=== PATIENT | female | born 1945 | race Caucasian/White ===

== ENCOUNTER 2017-09-20 13:15 | Emergency (ER) | payer MEDICARE ==
--- NOTE | 2017-09-20 13:23 | ER Document Report ---
ED General - General Stated Complaint: GENERAL WEAKNESS Time Seen by Provider: 09/20/17 13:21 Notes: 72 female presents with altered mental status. She has had a slow decline that the family was talking up to anxiety. They called today because she was not acting like herself. Per EMS vitals were normal except for possible hypothermia and there is no other information available. - Related Data Allergies/Adverse Reactions: No Known Allergies Allergy (Verified 09/20/17 14:27) Past Medical History - General Information source: Emergency Med Personnel Cannot obtain history due to: Dementia - Social History Smoking Status: Never Smoker Family History: None Review of Systems - Review of Systems Notes: REVIEW OF SYSTEMS PHYSICAL EXAMINATION General: No acute distress, well-nourished Head: Atraumatic, normocephalic ENT: Mouth normal, oropharynx moist, no exudates or tonsillar enlargement Eyes: Conjunctiva normal, pupils equal, lids normal Neck: No JVD, supple, no guarding CVS: Normal rate, regular rhythm, no murmurs Resp: No resp distress, equal and normal breath sounds bilaterally GI: Nondistended, soft, no tenderness to palpation, no rebound or guarding Ext: No deformities, no edema, normal range of motion in upper and lower ext Back: No CVA or midline TTP Skin: No rash, warm Lymphatic: No lymphadeopathy noted Neuro: Awake, alert. Face symmetric. GCS 15. Likely cognitive impairment. Trouble answering some questions. -: Yes ROS unobtainable due to patient's medical condition Course - Re-evaluation Re-evalutation: 09/20/17 13:23 Progressive cognitive decline in a 72-year-old female likely reflects dementia. Doubt delirium. She may be slightly hypothermic we will repeat her rectal temperature and if it is decreased we will get a sepsis workup. We will also do head CT 09/20/17 14:09 Spoke with patient's granddaughters. She has been having cognitive decline for months now has had multiple tests and scans, they state that "there is not enough blood flow to her brain" which I interpret to mean that she has vascular dementia or small vessel ischemic disease. She has help at home and primary care and I do not think this is a new problem. They do state that she is gotten worse in terms of her function in the last 2 days. She has been on Lexapro now for only about 2 weeks and they think it is due to that. I explained to them that patient to be fragile in terms of her cognition with new medications but that so far today we do not have a medical cause of her symptoms. Her CT does show atrophy which is quite pronounced. There is no stroke or bleed. No signs of infection. Pending her urine if it is normal I will discharge her home I will attempt to call her primary care so that they can close the loop with more support at home for the diagnostics and possible eventual placement if necessary I do not think this needs to happen today. I have discussed with the patient's family there likely diagnosis, aftercare plan , follow-up plans and my usual and customary return precautions. They verbalized understanding of this. 09/20/17 14:49 UA negative. Spoke with patient's primary care who states that she is aware of this cognitive decline and asked the patient to stop taking her Lexapro. I repeated these instructions to the family. They have a plan, good follow-up and are pending referral to neurology. - Laboratory Result Diagrams: 09/20/17 13:32 09/20/17 13:32 Laboratory results interpreted by me: 09/20/17 09/20/17 09/20/17 13:32 13:32 14:10 Seg Neutrophils % 81.1 H Lymphocytes % 11.2 L BUN 22 H Est GFR (Non-Af Amer) 52 L Glucose 197 H Calcium 10.4 H Urine Protein 30 H Urine Ketones 20 H Discharge - Discharge Clinical Impression: Dementia Qualifiers: Dementia type: unspecified type Dementia behavioral disturbance: without behavioral disturbance Qualified Code(s): F03.90 - Unspecified dementia without behavioral disturbance Condition: Good Disposition: HOME, SELF-CARE Instructions: Dementia (OM) Additional Instructions: We did testing to rule out infection or metabolic problems as a cause of the change in mental status. Labs were normal. CAT scan showed some brain atrophy or shrinkage, which may be due to dementia. Please take the patient to her primary care doctor for further behavioral and cognitive evaluation.
[2017-09-20 13:42] LABS: ABSOLUTE BASOPHILS # (AUTO) 0.1 10^3/uL (0.0-0.2); ABSOLUTE EOSINOPHILS # (AUTO) 0.1 10^3/uL (0.0-0.6); ABSOLUTE LYMPHOCYTES (AUTO) 1.1 10^3/uL (0.5-4.7); ABSOLUTE MONOCYTES (AUTO) 0.6 10^3/uL (0.1-1.4); ABSOLUTE NEUT (AUTO) 8.1 10^3/uL (1.7-8.2); BASOPHILS % (AUTO) 0.5 % (0-2); EOSINOPHILS % (AUTO) 0.8 % (0-6); HEMATOCRIT 36.4 % (36.0-47.0); HEMOGLOBIN 12.2 g/dL (12.0-15.5); LYMPHOCYTES % (AUTO) 11.2 % (13-45); MEAN CORPUSCULAR HEMOGLOBIN 29.8 pg (27.0-33.4); MEAN CORPUSCULAR HGB CONC 33.5 g/dL (32.0-36.0); MEAN CORPUSCULAR VOLUME 89 fl (80-97); MONOCYTES % (AUTO) 6.4 % (3-13); PLATELET COUNT 292 10^3/uL (150-450); RED BLOOD COUNT 4.09 10^6/uL (3.72-5.28); RED CELL DISTRIBUTION WIDTH 13.5 % (11.5-14.0); SEGMENTED NEUTROPHILS % (AUTO) 81.1 % (42-78); TOTAL CELLS COUNTED % (AUTO) 100 %
[2017-09-20 14:01] LABS: ANION GAP 9 (5-19); BLOOD UREA NITROGEN 22 mg/dL (7-20); CALCIUM 10.4 mg/dL (8.4-10.2); CARBON DIOXIDE 29 mmol/L (22-30); CHLORIDE 102 mmol/L (98-107); GLUCOSE 197 mg/dL (75-110); POTASSIUM 4.4 mmol/L (3.6-5.0); SODIUM 140.3 mmol/L (137-145)
--- NOTE | 2017-09-20 14:05 | RADIOLOGY REPORT (SQ) ---
EXAM DESCRIPTION: CT HEAD WITHOUT COMPLETED DATE/TIME: 09/20/2017 1:54 pm REASON FOR STUDY: CONFUSION COMPARISON: None. TECHNIQUE: Axial images acquired through the brain without intravenous contrast. Images reviewed wi th bone, brain and subdural windows. Images stored on PACS. All CT scanners at this facility use dose modulation, iterative reconstruction, and/or weight based d osing when appropriate to reduce radiation dose to as low as reasonably achievable (ALARA). [facility]: Dose Right [facility]: CareDose [facility]: Dose Right [facility]: Teradose 4D [facility]: Smart IMScouting RADIATION DOSE: CT Rad equipment meets quality standard of care and radiation dose reduction techniq ues were employed. CTDIvol: 67.0 mGy. DLP: 1316 mGy-cm. mGy. LIMITATIONS: None. FINDINGS: VENTRICLES: There is some prominence of the ventricular system out of proportion to the co rtical sulci such that I cannot exclude a component of normal pressure hydrocephalus. CEREBRUM: No masses. No hemorrhage. No midline shift. Areas of low density in the white matter mos t likely due to chronic micro-vascular ischemic change. No evidence for acute infarction. CEREBELLUM: No masses. No hemorrhage. No alteration of density. No evidence for acute infarction. EXTRAAXIAL SPACES: Mild age-related involutional change. No fluid collections. No masses. ORBITS AND GLOBE: No intra- or extraconal masses. Normal contour of globe without masses. CALVARIUM: No fracture. PARANASAL SINUSES: No fluid or mucosal thickening. SOFT TISSUES: No mass or hematoma. OTHER: No other significant finding. IMPRESSION: MILD CHRONIC CHANGES OF ATROPHY AND MICROVASCULAR ISCHEMIA. There is some prominence of the ventricular system out of proportion to the cortical sulci such that I cannot exclude a componen t of normal-pressure hydrocephalus. NO ACUTE PROCESS. EVIDENCE OF ACUTE STROKE: NO. TECHNICAL DOCUMENTATION: JOB ID: [id number] Quality ID # [id number]: Final reports with documentation of one or more dose reduction techniques (e.g., Au tomated exposure control, adjustment of the mA and/or kV according to patient size, use of iterative reconstruction technique) 2010 [employer]- All Rights Reserved
[2017-09-20 14:44] LABS: APPEARANCE,URINE CLEAR; BILIRUBIN,URINE NEGATIVE (NEGATIVE); COLOR,URINE YELLOW; GLUCOSE, URINE NEGATIVE (NEGATIVE); KETONES,URINE 20 mg/dL (NEGATIVE); LEUKOCYTE ESTERASE,URINE NEGATIVE (NEGATIVE); NITRITE,URINE NEGATIVE (NEGATIVE); PROTEIN,URINE 30 mg/dL (NEGATIVE); URINE SPECIFIC GRAVITY 1.011; UROBILINOGEN,URINE NEGATIVE mg/dL (<2.0)
[2017-09-20 15:05] VITALS: BP 136/80
--- NOTE | 2017-09-20 22:09 | EKG REPORT ---
SEVERITY:- OTHERWISE NORMAL ECG - SINUS RHYTHM VENTRICULAR PREMATURE COMPLEX : Confirmed by: Katalina Jo 20-Sep-2017 22:08:23
== END 2017-09-20 15:14 | disposition home or self-care (01) ==
LOC: ER 13:15
DX: F03.90 Unspecified dementia, unspecified severity, without behavioral disturbance, psychotic disturbance, mood disturbance, and anxiety (principal); R53.1 Weakness; R41.82 Altered mental status, unspecified
CPT/HCPCS: 36415; 51701; 70450; 80048; 81001; 85025; 93005; 93010; 99285

== ENCOUNTER 2017-09-21 18:44 | Inpatient (IN) | payer MEDICARE ==
--- NOTE | 2017-09-21 20:09 | ER Document Report ---
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 Son at bedside reports this to me. Patient came by EMS. Symptoms have resolved. Symptoms started less than 2 hours ago and lasted less than an hour. Family also reports that over the past several days patient has had a progressive mental decline and now she is incontinent, frequently confused, and mostly staying in bed. No fever, patient is still eating and drinking. TRAVEL OUTSIDE OF THE [place] IN LAST 30 DAYS: No - Related Data Allergies/Adverse Reactions: No Known Allergies Allergy (Verified 09/21/17 19:04) Past Medical History - Social History Smoking Status: Unknown if Ever Smoked Family History: None Patient has suicidal ideation: No Patient has homicidal ideation: No - Past Medical History Cardiac Medical History: Reports: Hx Hypertension Endocrine Medical History: Reports: Hx Diabetes Mellitus Type 2 Renal/ Medical History: Denies: Hx Peritoneal Dialysis Review of Systems - Review of Systems Constitutional: No symptoms reported EENT: No symptoms reported Cardiovascular: No symptoms reported Respiratory: No symptoms reported Gastrointestinal: No symptoms reported Genitourinary: No symptoms reported Female Genitourinary: No symptoms reported Musculoskeletal: No symptoms reported Skin: No symptoms reported Hematologic/Lymphatic: No symptoms reported Neurological/Psychological: See HPI Physical Exam - Vital signs Vitals: Temp Pulse Resp BP Pulse Ox 98.2 F 82 16 113/88 H 96 09/21/17 18:45 09/21/17 18:45 09/21/17 18:45 09/21/17 18:45 09/21/17 18:45 Interpretation: Normal - General General appearance: Appears well, Alert In distress: None - HEENT Head: Normocephalic, Atraumatic Eyes: Normal Conjunctiva: Normal Extraocular movements intact: Yes Eyelashes: Normal Pupils: PERRL Mouth/Lips: Normal Mucous membranes: Normal Pharynx: Normal Neck: Normal - Respiratory Respiratory status: No respiratory distress Chest status: Nontender Breath sounds: Normal Chest palpation: Normal - Cardiovascular Rhythm: Regular. No: Tachycardia Heart sounds: Normal auscultation, S1 appreciated, S2 appreciated Murmur: No - Abdominal Inspection: Normal Distension: No distension Bowel sounds: Normal Tenderness: Nontender. No: Tender, Guarding - Back Back: Normal, Nontender. No: Tender - Extremities General upper extremity: Normal inspection, Nontender, Normal strength, Normal temperature General lower extremity: Normal inspection, Nontender, Normal strength, Normal temperature. No: Edema - Neurological Neuro grossly intact: Yes Cognition: Confused - Patient able to follow directions and answer some questions appropriately but is confused about time, place, events Orientation: Disoriented to place, Disoriented to time, Disoriented to events. No: Disoriented to person [place] Coma Scale Eye Opening: Spontaneous Aurelia Coma Scale Verbal: Confused Aurelia Coma Scale Motor: Obeys Commands [place] Coma Scale Total: 14 Speech: Normal. No: Dysarthria, Expressive aphasia, Receptive aphasia Cranial nerves: Normal. 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 Only difference today is that in addition to patient's mental decline she also has symptoms reported concerning for TIA. 09/21/17 Patient with no neurological deficits on my exam. CBC, chemistry, cardiac enzymes, urinalysis, chest x-ray, EKG all generally unremarkable. Discussed with family. Will discuss with hospitalist for admission for TIA risk stratification and because of worsening mental decline. Discussed with Dr. Chan, internal medicine, patient will be admitted to telemetry observation. - Vital Signs Vital signs: Temp Pulse Resp BP Pulse Ox 98.4 F 68 16 131/88 H 95 09/21/17 23:00 09/22/17 00:00 09/22/17 02:01 09/22/17 02:01 09/22/17 02:01 - Laboratory Result Diagrams: 09/21/17 19:00 09/21/17 19:00 Laboratory results interpreted by me: 09/21/17 09/21/17 19:00 21:20 BUN 33 H Est GFR (Non-Af Amer) 49 L Glucose 189 H Urine Protein 30 H Ur Leukocyte Esterase SMALL H Discharge - Discharge Clinical Impression: TIA (transient ischemic attack) Qualifiers: Transient cerebral ischemia type: unspecified Qualified Code(s): G45.9 - Transient cerebral ischemic attack, unspecified Dementia Qualifiers: Dementia type: unspecified type Dementia behavioral disturbance: with behavioral disturbance Qualified Code(s): F03.91 - Unspecified dementia with behavioral disturbance Condition: Stable Disposition: ADMITTED OBSERVATION Admitting Provider: Hospitalist Unit Admitted: Telemetry
[2017-09-21 20:33] LABS: ABSOLUTE BASOPHILS # (AUTO) 0.1 10^3/uL (0.0-0.2); ABSOLUTE EOSINOPHILS # (AUTO) 0.2 10^3/uL (0.0-0.6); ABSOLUTE LYMPHOCYTES (AUTO) 1.7 10^3/uL (0.5-4.7); ABSOLUTE MONOCYTES (AUTO) 0.6 10^3/uL (0.1-1.4); BASOPHILS % (AUTO) 0.7 % (0-2); EOSINOPHILS % (AUTO) 1.8 % (0-6); HEMATOCRIT 36.1 % (36.0-47.0); LYMPHOCYTES % (AUTO) 20.5 % (13-45); MEAN CORPUSCULAR HEMOGLOBIN 29.9 pg (27.0-33.4); MEAN CORPUSCULAR HGB CONC 33.3 g/dL (32.0-36.0); MEAN CORPUSCULAR VOLUME 90 fl (80-97); MONOCYTES % (AUTO) 7.4 % (3-13); PLATELET COUNT 298 10^3/uL (150-450); RED BLOOD COUNT 4.03 10^6/uL (3.72-5.28); RED CELL DISTRIBUTION WIDTH 13.4 % (11.5-14.0); SEGMENTED NEUTROPHILS % (AUTO) 69.6 % (42-78); TOTAL CELLS COUNTED % (AUTO) 100 %; WHITE BLOOD COUNT 8.6 10^3/uL (4.0-10.5)
[2017-09-21 20:42] LABS: ALANINE AMINOTRANSFERASE 23 U/L (9-52); ALKALINE PHOSPHATASE 78 U/L (38-126); ANION GAP 12 (5-19); ASPARTATE AMINO TRANSFERASE 22 U/L (14-36); BILIRUBIN,DIRECT 0.2 mg/dL (0.0-0.4); BILIRUBIN,TOTAL 0.2 mg/dL (0.2-1.3); BLOOD UREA NITROGEN 33 mg/dL (7-20); CARBON DIOXIDE 25 mmol/L (22-30); CHLORIDE 103 mmol/L (98-107); CREATINE KINASE 74 U/L (30-135); GLUCOSE 189 mg/dL (75-110); POTASSIUM 3.6 mmol/L (3.6-5.0); SODIUM 139.8 mmol/L (137-145); TOTAL PROTEIN 6.9 g/dL (6.3-8.2)
--- NOTE | 2017-09-21 20:45 | RADIOLOGY REPORT (SQ) ---
EXAM DESCRIPTION: CHEST SINGLE VIEW COMPLETED DATE/TIME: 09/21/2017 8:38 pm REASON FOR STUDY: AMS COMPARISON: None. EXAM PARAMETERS: NUMBER OF VIEWS: One view. TECHNIQUE: Single frontal radiographic view of the chest acquired. RADIATION DOSE: NA LIMITATIONS: None. FINDINGS: LUNGS AND PLEURA: No opacities, masses or pneumothorax. No pleural effusion. MEDIASTINUM AND HILAR STRUCTURES: No masses. Contour normal. HEART AND VASCULAR STRUCTURES: Heart normal in size. Normal vasculature. BONES: No acute findings. HARDWARE: None in the chest. OTHER: No other significant finding. IMPRESSION: NO ACUTE RADIOGRAPHIC FINDING IN THE CHEST. TECHNICAL DOCUMENTATION: JOB ID: [id number] [employer]- All Rights Reserved
[2017-09-21 20:51] LABS: CREATINE KINASE MB 0.78 ng/mL (<4.55)
[2017-09-21 20:52] LABS: TROPONIN I < 0.012 ng/mL
[2017-09-21 22:04] LABS: BILIRUBIN,URINE NEGATIVE (NEGATIVE); COLOR,URINE YELLOW; GLUCOSE, URINE NEGATIVE (NEGATIVE); KETONES,URINE NEGATIVE (NEGATIVE); LEUKOCYTE ESTERASE,URINE SMALL (NEGATIVE); NITRITE,URINE NEGATIVE (NEGATIVE); PROTEIN,URINE 30 mg/dL (NEGATIVE); URINE SPECIFIC GRAVITY 1.024; UROBILINOGEN,URINE NEGATIVE mg/dL (<2.0)
[2017-09-21 22:08] LABS: APPEARANCE,URINE HAZY
[2017-09-21] MEDS ORDERED: ACETAMINOPHEN 325 MG TABLET PO PRN (22:32)
[2017-09-21] MEDS ORDERED: NORMAL SALINE 1000 ML 1,000 ML IV PRN (23:16)
[2017-09-21] MEDS ORDERED: OLANZAPINE 5 MG TABLET PO ONE (23:19)
[2017-09-21] MEDS ORDERED: CLONIDINE HCL 0.1 MG TABLET PO PRN (23:20)
[2017-09-22 00:07] LABS: URINE AMPHETAMINES SCREEN NEGATIVE; URINE BARBITURATES SCREEN NEGATIVE; URINE BENZODIAZEPINES SCREEN NEGATIVE; URINE COCAINE SCREEN NEGATIVE; URINE MARIJUANA (THC) SCREEN NEGATIVE; URINE METHADONE SCREEN NEGATIVE; URINE PHENCYCLIDINE SCREEN NEGATIVE
[2017-09-22] MEDS ORDERED: GLUCAGON,HUMAN RECOMB 1 MG INJ IM PRN (00:16)
[2017-09-22] MEDS ORDERED: DEXTROSE 50%-WATER 25 GM/50 ML DISP.SYRIN IV PRN ×2 (00:16)
[2017-09-22] MEDS ORDERED: INSULIN LISPRO 100 UNIT/ML 3 ML VIAL SUBCUT PRN (00:16)
[2017-09-22] MEDS ORDERED: DEXTROSE 40% GEL 15 GM TUBE PO PRN ×2 (00:16)
--- NOTE | 2017-09-22 01:02 | PDOC H&P ---
History of Present Illness Admission Date/PCP: SHEYLA TRAMMELL DO Patient complains of: Forgetfulness possible stroke History of Present Illness: SHEYLA HADLEY is a 72 year old female history of diabetes, hypertension but has been taken off her blood pressure medications, and forgetfulness. Patient is in [place] visiting her family from [place]. Patient was taken to a doctor who placed patient on Lexapro for anxiety. They stated that her forgetfulness became worse after being started on that medication. In addition to that patient became more confused and started urinating and defecating on herself. She also started to become angry and combative. Report patient talking to herself and asking for people who have years ago. They state that other times she is normal and does not remember the episodes. She is concerned because she is not able to care for herself and this is not her usual state. When asked how long this has been going on they are unable to say. When patient is home with her in [place] apparently she is a little forgetful day or 2. Family reports today that she has some left-sided weakness and left-sided facial droop and patient was able unable to walk. That has since resolved with the confusion is still present. In the ED patient was noted to be hypertensive and confused. Hospitalist was called to further evaluate patient for her acute metabolic encephalopathy and for possible stroke. Past Medical History Cardiac Medical History: Reports: Hypertension Endocrine Medical History: Reports: Diabetes Mellitus Type 2 Past Surgical History Past Surgical History: Reports: Hysterectomy Social History Smoking Status: Never Smoker Frequency of Alcohol Use: None Hx Recreational Drug Use: No Hx Prescription Drug Abuse: No - Advance Directive Resuscitation Status: Full Code Family History Family History: COPD Parental Family History Reviewed: No Children Family History Reviewed: No Sibling(s) Family History Reviewed.: No Medication/Allergy Home Medications: Cyanocobalamin (Vitamin B-12) [B-12] 500 mcg PO ACBRKFST 09/21/17 Glipizide [Glipizide Xl] 10 mg PO ACBRKFST 09/21/17 Metformin HCl 850 mg PO TID 09/21/17 Omeprazole 40 mg PO ACBRKFST 09/21/17 Rosuvastatin Calcium 10 mg PO ACBRKFST 09/21/17 Allergies/Adverse Reactions: No Known Allergies Allergy (Verified 09/21/17 19:04) Review of Systems ROS unobtainable: Due to mental status Constitutional: ABSENT: chills, fever(s), headache(s), weight gain, weight loss Eyes: ABSENT: visual disturbances Ears: ABSENT: hearing changes Cardiovascular: ABSENT: chest pain, dyspnea on exertion, edema, orthropnea, palpitations Respiratory: ABSENT: cough, hemoptysis Gastrointestinal: ABSENT: abdominal pain, constipation, diarrhea, hematemesis, hematochezia, nausea, vomiting Genitourinary: ABSENT: dysuria, hematuria Musculoskeletal: ABSENT: joint swelling Integumentary: ABSENT: rash, wounds Neurological: ABSENT: abnormal gait, abnormal speech, confusion, dizziness, focal weakness, syncope Psychiatric: ABSENT: anxiety, depression, homidical ideation, suicidal ideation Endocrine: ABSENT: cold intolerance, heat intolerance, polydipsia, polyuria Hematologic/Lymphatic: ABSENT: easy bleeding, easy bruising Physical Exam Vital Signs: Temp Pulse Resp BP Pulse Ox 98.2 F 82 17 166/81 H 95 09/21/17 18:45 09/21/17 18:45 09/21/17 22:02 09/21/17 22:02 09/21/17 22:02 Intake & Output 09/20/17 09/21/17 09/22/17 06:59 06:59 06:59 Weight 63.503 kg General appearance: PRESENT: no acute distress, well-developed, well-nourished Head exam: PRESENT: atraumatic, normocephalic Eye exam: PRESENT: PERRLA. ABSENT: scleral icterus Ear exam: PRESENT: normal external ear exam Mouth exam: PRESENT: moist, tongue midline Neck exam: ABSENT: carotid bruit, JVD, lymphadenopathy, thyromegaly Respiratory exam: PRESENT: clear to auscultation klaus. ABSENT: rales, rhonchi, wheezes Cardiovascular exam: PRESENT: RRR. ABSENT: diastolic murmur, rubs, systolic murmur Pulses: PRESENT: normal dorsalis pedis pul Vascular exam: PRESENT: normal capillary refill GI/Abdominal exam: PRESENT: normal bowel sounds, soft. ABSENT: distended, guarding, mass, organolmegaly, rebound, tenderness Rectal exam: PRESENT: deferred Extremities exam: PRESENT: full ROM. ABSENT: calf tenderness, clubbing, pedal edema Neurological exam: PRESENT: alert, altered, awake, oriented to person, CN II- XII grossly intact. ABSENT: motor sensory deficit Psychiatric exam: PRESENT: agitated. ABSENT: homicidal ideation, suicidal ideation Skin exam: PRESENT: dry, intact, warm. ABSENT: cyanosis, rash Results Laboratory Results: 09/21/17 19:00 09/21/17 19:00 09/21/17 09/21/17 09/21/17 19:00 19:00 21:20 WBC 8.6 RBC 4.03 Hgb 12.0 Hct 36.1 MCV 90 MCH 29.9 MCHC 33.3 RDW 13.4 Plt Count 298 Seg Neutrophils % 69.6 Lymphocytes % 20.5 Monocytes % 7.4 Eosinophils % 1.8 Basophils % 0.7 Absolute Neutrophils 6.0 Absolute Lymphocytes 1.7 Absolute Monocytes 0.6 Absolute Eosinophils 0.2 Absolute Basophils 0.1 Sodium 139.8 Potassium 3.6 Chloride 103 Carbon Dioxide 25 Anion Gap 12 BUN 33 H Creatinine 1.09 Est GFR ( Amer) > 60 Est GFR (Non-Af Amer) 49 L Glucose 189 H Calcium 10.0 Total Bilirubin 0.2 AST 22 ALT 23 Alkaline Phosphatase 78 Total Protein 6.9 Albumin 4.0 Urine Color YELLOW Urine Appearance HAZY Urine pH 5.0 Ur Specific Talcott 1.024 Urine Protein 30 H Urine Glucose (UA) NEGATIVE Urine Ketones NEGATIVE Urine Blood NEGATIVE Urine Nitrite NEGATIVE Ur Leukocyte Esterase SMALL H Urine WBC (Auto) 13 Urine RBC (Auto) 4 09/21/17 09/21/17 19:00 19:00 Creatine Kinase 74 CK-MB (CK-2) 0.78 Troponin I < 0.012 Impressions: Chest X-Ray 09/21/17 20:05 IMPRESSION: NO ACUTE RADIOGRAPHIC FINDING IN THE CHEST. Assessment & Plan - Diagnosis (1) TIA (transient ischemic attack) Qualifiers: Transient cerebral ischemia type: unspecified Qualified Code(s): G45.9 - Transient cerebral ischemic attack, unspecified Is this a current diagnosis for this admission?: Yes Plan: Patient family report reports for right facial droop and right hand weakness is now resolved. Patient CT head without was done on 09/20/2017 was negative for stroke. Will check MRI with and without contrast carotid Doppler and cardiac echo to complete stroke workup. Also patient placed on statin and aspirin. Speech therapy occupational therapy and physical therapy consulted. Will allow for permissive attention until stroke is ruled out. Otherwise patient will need blood pressure management. Lipid panel and hemoglobin globin A1c will order. Patient on SCD for DVT prophylaxis. (2) Acute metabolic encephalopathy Is this a current diagnosis for this admission?: Yes Plan: Patient with worsening cognitive impairment and debility. Concerned that patient may have underlying the vascular dementia based on her history of hypertension diabetes. Also CT of the head done on 09/20/2017 shows atrophy and diffuse microvascular disease. UA and chest x-ray are negative. Will check UDS. Will check folate, B12, thiamine, vitamin D level. Ammonia level is not elevated. Patient has some dehydration for which she is being given IV fluids. (3) Hypertension Qualifiers: Hypertension type: essential hypertension Qualified Code(s): I10 - Essential (primary) hypertension Is this a current diagnosis for this admission?: Yes Plan: Appears to have hypertension. Per patient family patient doctor took her off of her blood pressure medication. Patient may need to be restarted on antihypertensives. (4) Type 2 diabetes mellitus Is this a current diagnosis for this admission?: Yes Plan: Part patient on sliding scale insulin. Patient normally on metformin. Will check hemoglobin A1c. (5) Prerenal azotemia Is this a current diagnosis for this admission?: Yes Plan: Has a BUN of 33 with a normal creatinine. Will give patient some gentle hydration and follow-up. (6) Dementia Qualifiers: Dementia type: unspecified type Dementia behavioral disturbance: with behavioral disturbance Qualified Code(s): F03.91 - Unspecified dementia with behavioral disturbance Is this a current diagnosis for this admission?: Yes Plan: It sounds as if patient has underlying dementia with psychosis. Per patient family her who she lives with in [place] states that she is forgetful at times. Patient often times speak to herself and answers herself. She will argue and fight with her family. Appears to be a component of delirium as sometimes patient is back to her baseline. Will start patient on Aricept [address] patient on Zyprexa two-point 5 in the morning and 5 at night for her agitation, anxiety and psychosis. Will also check thyroid studies, B12, vitamin D, folate and thiamine to make sure she is not deficient in any of these as these could exacerbate her symptoms. Explained to family that based on her behavior, CT findings and history of diabetes and hypertension that patient may in fact have vascular dementia with a behavioral component which may be worsening. - Time Time Spent: 30 to 50 Minutes Anticipated discharge: Home, Home with Homehealth Within: within 36 hours - Inpatient Certification Medical Necessity: Significant Comorbidiites Make Outpatient Treatment Too Risky , Need Close Monitoring Due to Risk of Patient Decompensation
[2017-09-22 01:08] LABS: FOLATE > 20.00 ng/mL (>2.76)
[2017-09-22] MEDS ORDERED: NORMAL SALINE 1000 ML 1,000 ML IV PRN (01:56)
[2017-09-22 02:03] LABS: FREE T4 (FREE THYROXINE) 1.45 ng/dL (0.78-2.19)
[2017-09-22 02:17] LABS: THYROID STIMULATING HORMONE 0.75 uIU/mL (0.47-4.68)
[2017-09-22] MEDS: LANSOPRAZOLE 30 MG TAB.RAP.DR PO SCH (06:39)
[2017-09-22 06:45] LABS: CHOLESTEROL 150.15 mg/dL (0-200); TRIGLYCERIDES 125 mg/dL (<150)
[2017-09-22 06:47] LABS: ANION GAP 5 (5-19); BLOOD UREA NITROGEN 29 mg/dL (7-20); CALCIUM 10.2 mg/dL (8.4-10.2); CARBON DIOXIDE 30 mmol/L (22-30); CHLORIDE 107 mmol/L (98-107); GLUCOSE 69 mg/dL (75-110); MAGNESIUM 1.8 mg/dL (1.6-2.3); POTASSIUM 3.8 mmol/L (3.6-5.0); SODIUM 142.1 mmol/L (137-145)
[2017-09-22 06:56] LABS: DIRECT LDL 70 mg/dL (<100)
--- NOTE | 2017-09-22 09:07 | EKG REPORT ---
SEVERITY:- NORMAL ECG - SINUS RHYTHM : Confirmed by: Katalina Jo 22-Sep-2017 09:06:49
--- NOTE | 2017-09-22 09:45 | PDOC PROGRESS REPORT ---
Subjective Progress Note for:: 09/22/17 Subjective:: Patient states that she is confused but she is having cold symptoms Review of systems All organ systems evaluated and negative except as in subjective All significant laboratories and diagnostics have been reviewed Reason For Visit: TIA Physical Exam Vital Signs: Temp Pulse Resp BP Pulse Ox 98.4 F 64 16 156/64 H 95 09/21/17 23:00 09/22/17 06:00 09/22/17 07:05 09/22/17 07:05 09/22/17 07:05 General appearance: PRESENT: cooperative, obese Head exam: PRESENT: atraumatic, normocephalic Eye exam: PRESENT: conjunctiva pink, EOMI, PERRLA Ear exam: PRESENT: normal external ear exam, TM's normal bilaterally Mouth exam: PRESENT: moist Neck exam: PRESENT: full ROM Respiratory exam: PRESENT: clear to auscultation klaus Cardiovascular exam: PRESENT: RRR. ABSENT: diastolic murmur, systolic murmur Vascular exam: PRESENT: normal capillary refill GI/Abdominal exam: PRESENT: normal bowel sounds, soft. ABSENT: tenderness Extremities exam: PRESENT: full ROM. ABSENT: joint swelling, pedal edema Neurological exam: PRESENT: alert, oriented to person, CN II-XII grossly intact. ABSENT: oriented to place, oriented to time Skin exam: PRESENT: intact, normal color Results Laboratory Results: 09/22/17 05:50 09/21/17 09/21/17 09/22/17 23:25 23:25 05:50 Sodium Potassium Chloride Carbon Dioxide Anion Gap BUN Creatinine Est GFR ( Amer) Est GFR (Non-Af Amer) Glucose Calcium Magnesium Ammonia < 8.7 L Triglycerides 125 Cholesterol 150.15 LDL Cholesterol Direct 70 VLDL Cholesterol 25.0 HDL Cholesterol 59 Vitamin B12 704.0 Folate > 20.00 09/22/17 05:50 Sodium 142.1 Potassium 3.8 Chloride 107 Carbon Dioxide 30 Anion Gap 5 BUN 29 H Creatinine 0.98 Est GFR ( Amer) > 60 Est GFR (Non-Af Amer) 56 L Glucose 69 L Calcium 10.2 Magnesium 1.8 Ammonia Triglycerides Cholesterol LDL Cholesterol Direct VLDL Cholesterol HDL Cholesterol Vitamin B12 Folate Impressions: Chest X-Ray 09/21/17 20:05 IMPRESSION: NO ACUTE RADIOGRAPHIC FINDING IN THE CHEST. Assessment & Plan - Diagnosis (1) Acute metabolic encephalopathy Is this a current diagnosis for this admission?: Yes Plan: Uncertain about etiology at the present time. Order influenza test (2) Hypertension Qualifiers: Hypertension type: essential hypertension Qualified Code(s): I10 - Essential (primary) hypertension Is this a current diagnosis for this admission?: Yes Plan: Continue present management (3) Prerenal azotemia Is this a current diagnosis for this admission?: Yes Plan: Continue hydration and trend (4) Type 2 diabetes mellitus Qualifiers: Diabetes mellitus complication status: with unspecified complications Diabetes mellitus petroleum terminal plant operator insulin use: without petroleum terminal plant operator use Qualified Code( s): E11.8 - Type 2 diabetes mellitus with unspecified complications Is this a current diagnosis for this admission?: Yes Plan: Continue present treatment (5) UTI (urinary tract infection) Qualifiers: Urinary tract infection type: acute cystitis Hematuria presence: without hematuria Qualified Code(s): N30.00 - Acute cystitis without hematuria Is this a current diagnosis for this admission?: Yes Plan: Continue present treatment but I am highly suspicious that we are not dealing with a urinary tract infection - Time Time Spent with patient: 15-24 minutes Anticipated discharge: Home Within: within 48 hours - Inpatient Certification Based on my medical assessment, after consideration of the patient's comorbidities, presenting symptoms, or acuity I expect that the services needed warrant INPATIENT care.: Yes I certify that my determination is in accordance with my understanding of Medicare's requirements for reasonable and necessary INPATIENT services [42 CFR 412.3e].: Yes Medical Necessity: Need For IV Fluids, Need for IV Antibiotics
[2017-09-22] MEDS ORDERED: CEFTRIAXONE 1 GM/D5W RTU 1 GM/50 ML RTUPB IV SCH (10:00)
[2017-09-22] MEDS: ASPIRIN 81 MG TABLET, ENT COATED PO SCH (10:22)
[2017-09-22] MEDS: OLANZAPINE 2.5 MG TABLET PO SCH (10:23)
--- NOTE | 2017-09-22 11:21 | RADIOLOGY REPORT (SQ) ---
EXAM DESCRIPTION: MRI HEAD WITHOUT COMPLETED DATE/TIME: 09/22/2017 11:12 am REASON FOR STUDY: stroke COMPARISON: CT dated 09/20/2017. TECHNIQUE: Multiplanar imaging includes non-contrasted T1, T2, FLAIR, and Diffusion with ADC map seq uences. Images stored on PACS. LIMITATIONS: Motion artifact. FINDINGS: ANATOMY: No anomalies. Normal vascular flow voids. Pituitary fossa normal. CSF SPACES: Diffuse ventriculomegaly. No hemorrhage. CEREBRUM: A few high-signal intensity lesions scattered throughout the white matter on FLAIR imaging with distribution suggesting chronic micro-vascular ischemic change. Sulci and gyri normal in size a nd contour. No evidence of hemorrhage, mass or extraaxial fluid collection. POSTERIOR FOSSA: No signal alteration. No hemorrhage. No edema, masses or mass effect. Internal wayne tory canals, cerebello-pontine angles, mastoids normal. DIFFUSION: Negative for acute or sub-acute infarction. ORBITS: No masses. Globes normal. PARANASAL SINUSES: No fluid levels. Mucosa normal. OTHER: No other significant finding. IMPRESSION: LIMITED STUDY. DIFFUSE VENTRICULOMEGALY. MINIMAL MICROVASCULAR ISCHEMIC CHANGE. NO AC [place] FINDINGS. EVIDENCE OF ACUTE STROKE: NO. TECHNICAL DOCUMENTATION: JOB ID: [id number] [employer]- All Rights Reserved
[2017-09-22] MEDS: CEFTRIAXONE SODIUM 1,000 MG in DEXTROSE 5%-WATER 100 ML IV SCH (12:58)
--- NOTE | 2017-09-22 13:15 | RADIOLOGY REPORT (SQ) ---
EXAM DESCRIPTION: CAROTID DOPPLER COMPLETED DATE/TIME: 09/22/2017 12:58 pm REASON FOR STUDY: stroke COMPARISON: None. TECHNIQUE: Grayscale ultrasound, Doppler velocity and spectra, and color Doppler images acquired of the extra-cranial carotid and vertebral arteries. Images stored on PACS. LIMITATIONS: None. FINDINGS: RIGHT CAROTID CCA Velocities: Within normal limits. ICA Velocities Peak systolic 0.74 m/s. End diastolic 0.22 m/s. Proximal ICA/CCA peak systolic ratio 1.05. Spectra normal. No significant plaque. LEFT CAROTID CCA Velocities: Within normal limits. ICA Velocities Peak systolic 0.95 m/s. End diastolic 0.23 m/s. Proximal ICA/CCA peak systolic ratio 1.4. Spectra normal. No significant plaque. VERTEBRAL ARTERIES: Antegrade flow. Normal waveforms. SUBCLAVIAN ARTERIES: No finding. OTHER: No other significant finding. IMPRESSION: NO HEMODYNAMICALLY SIGNIFICANT STENOSIS. COMMENT: Quality ID #[id number]: Velocity criteria are extrapolated from the diameter data as defined by t he Society of Radiologists in Ultrasound Consensus Conference. Radiology 2003: 229; 340-346. TECHNICAL DOCUMENTATION: JOB ID: [id number] [employer]- All Rights Reserved
[2017-09-22] MEDS ORDERED: INFLUENZA ADLT QUAD (36MOS+) 2017-18 VAC 0.5 ML SYR IM PRN (17:34)
--- NOTE | 2017-09-22 19:00 | XCELERA REPORT ---
[address] [address] Transthoracic Echocardiogram Report Name: SHEYLA HADLEY Age: 72 yrs Gender: Female : 1945 Patient Status: Inpatient Patient Location: [place] [address]^A Study Date: 09/22/2017 12:05 PM Height: 65 in Weight: 140 lb BSA: 1.7 m2 Procedure: A complete two-dimensional transthoracic echocardiogram was performed (2D, M-mode, spectral and color flow Doppler). The study was technically difficult with many images being suboptimal in quality. Reason For Study: stroke Ordering Physician: ABIGAIL CORDERO Performed By: Yesica Cabrera Interpretation Summary The study was technically difficult with many images being suboptimal in quality. The left ventricular ejection fraction is normal. There is mild concentric left ventricular hypertrophy. The left ventricle is grossly normal size. Doppler measurements suggest pseudonormalized left ventricular relaxation, which is associated with grade II/IV or mild to moderate diastolic dysfunction Wall motion cannot be accurately commented on, but no definite regional wall motion abnormalities noted. The right ventricular systolic function is normal. The right atrium is normal in size The left atrial size is normal. There is a trace amount of mitral regurgitation There is no mitral valve stenosis. No aortic regurgitation is present. There is no aortic valve stenosis No tricuspid regurgitation. There is no tricuspid stenosis. The aortic root is not well visualized. The inferior vena cava appeared normal and decreased > 50% with respiration (RAP 5-10 mmHg) There is no pericardial effusion. Consider LAMONT if clinically indicated. May consider mobile cardiac telemetry monitoring (MCT) for ruling out transient AFIB. MMode/2D Measurements & Calculations RVDd: 2.8 cm LVIDd: 3.4 cm FS: 31.5 % Ao root diam: 2.9 cm IVSd: 1.1 cm LVIDs: 2.3 cm EDV(Teich): 47.4 ml LVPWd: 1.1 cm ESV(Teich): 18.7 ml Ao root area: 6.6 cm2 EF(Teich): 60.5 % LA dimension: 2.1 cm LVOT diam: 2.0 cm LVOT area: 3.1 cm2 Doppler Measurements & Calculations MV E max helen: MV P1/2t max helen: Ao V2 max: LV V1 max P.0 cm/sec 78.0 cm/sec 117.3 cm/sec 2.0 mmHg MV A max helen: MV P1/2t: 99.4 msec Ao max PG: LV V1 max: 90.8 cm/sec MVA(P1/2t): 2.2 cm2 5.5 mmHg 69.9 cm/sec MV E/A: 0.86 MV dec slope: TENA(V,D): 1.9 cm2 229.8 cm/sec2 PA V2 max: 66.6 cm/sec PA max P.8 mmHg Left Ventricle The left ventricle is grossly normal size. There is mild concentric left ventricular hypertrophy. The left ventricular ejection fraction is normal. Doppler measurements suggest pseudonormalized left ventricular relaxation, which is associated with grade II/IV or mild to moderate diastolic dysfunction. Wall motion cannot be accurately commented on, but no definite regional wall motion abnormalities noted. Right Ventricle The right ventricle is grossly normal size. There is normal right ventricular wall thickness. The right ventricular systolic function is normal. Atria The right atrium is normal in size. The left atrial size is normal. Interarterial septum not well visualized and not well dopplered. Cannot comment on ASD/PFO presence. Mitral Valve There is mild mitral leaflet calcification. There is no mitral valve stenosis. There is a trace amount of mitral regurgitation. Aortic Valve The aortic valve opens well. There is no aortic valve stenosis. No aortic regurgitation is present. Tricuspid Valve The tricuspid valve is not well visualized secondary to technical limitations. There is no tricuspid stenosis. No tricuspid regurgitation. Pulmonic Valve The pulmonic valve is not well seen, but is grossly normal. Great Vessels The aortic root is not well visualized. The inferior vena cava appeared normal and decreased > 50% with respiration (RAP 5-10 mmHg). Effusions There is no pericardial effusion. Incidental Findings Consider LAMONT if clinically indicated. May consider mobile cardiac telemetry monitoring (MCT) for ruling out transient AFIB. : ABIGAIL CORDERO > Katalina Jo
[2017-09-22] MEDS ORDERED: ATORVASTATIN CALCIUM 10 MG TABLET PO SCH (22:00)
[2017-09-22] MEDS ORDERED: DONEPEZIL HCL 5 MG TABLET PO SCH (22:00)
[2017-09-22] MEDS ORDERED: OLANZAPINE 5 MG TABLET PO SCH (22:00)
[2017-09-23] MEDS: LANSOPRAZOLE 30 MG TAB.RAP.DR PO SCH (06:03)
[2017-09-23] MEDS ORDERED: AMLODIPINE BESYLATE 5 MG TABLET PO SCH (10:00)
--- NOTE | 2017-09-23 10:55 | PDOC TRANSFER SUMMARY ---
General Admission Date/PCP: 09/21/17 23:02 SHEYLA TRAMMELL DO Admission Date: 09/21/17 Transfer Date: 09/23/17 Accepting Facility: [facility] Accepting Physician: Dr Berny Loera Resuscitation Status: Full Code - Transfer Diagnosis (2) Acute metabolic encephalopathy Is this a current diagnosis for this admission?: Yes (3) Hypertension Is this a current diagnosis for this admission?: Yes (4) Type 2 diabetes mellitus Is this a current diagnosis for this admission?: Yes (5) UTI (urinary tract infection) Is this a current diagnosis for this admission?: Yes - Transfer Medications Home Medications: Cyanocobalamin (Vitamin B-12) [B-12] 500 mcg PO DAILY 09/21/17 Glipizide [Glipizide Xl] 10 mg PO DAILY 09/21/17 Metformin HCl 850 mg PO TID 09/21/17 Omeprazole 40 mg PO DAILY 09/21/17 Rosuvastatin Calcium 10 mg PO DAILY 09/21/17 Cholecalciferol (Vitamin D3) [Vitamin D3] 5,000 unit PO DAILY 09/22/17 Transfer Medications: Current Medications Acetaminophen (Tylenol 325 Mg Tablet) 650 mg PO Q4HP PRN PRN Reason: Temp greater than 101F Stop: 10/21/17 22:31 Amlodipine Besylate (Norvasc 5 Mg Tablet) 5 mg PO DAILY [facility] Stop: 10/23/17 09:59 Aspirin (Ecotrin 81 Mg Ec Tablet) 81 mg PO DAILY [facility] Stop: 10/22/17 09:59 Last Admin: 09/22/17 10:22 Dose: 81 mg Atorvastatin Calcium (Lipitor 10 Mg Tablet) 10 mg PO QHS [facility]EDDIE Stop: 10/22/17 21:59 Last Admin: 09/23/17 00:30 Dose: Not Given Clonidine (Catapres 0.1 Mg Tablet) 0.1 mg PO Q6HP PRN PRN Reason: SBP>160 Stop: 10/21/17 23:19 Last Admin: 09/22/17 10:23 Dose: 0.1 mg Dextrose (Dextrose Inj 50% Syringe (25 Gm/50 Ml)) 12.5 gm IV PRN PRN; Protocol PRN Reason: FOR BG 50-69 IN ALERT PATIENT Stop: 10/22/17 00:15 Dextrose (Dextrose Inj 50% Syringe (25 Gm/50 Ml)) 25 gm IV PRN PRN; Protocol PRN Reason: PER PROTOCOL Stop: 10/22/17 00:15 Donepezil HCl (Aricept 5 Mg Tablet) 5 mg PO QHS [facility] Stop: 10/22/17 21:59 Last Admin: 09/23/17 00:30 Dose: Not Given Glucagon (Glucagen Inj 1 Mg Vial) 1 mg IM PRN PRN; Protocol PRN Reason: Evaluate for BG < 70 Stop: 10/22/17 00:15 Glucose (Glutose 40% Gel 15 Gm Tube) 15 gm PO PRN PRN; Protocol PRN Reason: FOR BG 50-69 IN ALERT PATIENT Stop: 10/22/17 00:15 Glucose (Glutose 40% Gel 15 Gm Tube) 30 gm PO PRN PRN; Protocol PRN Reason: FOR BG < 50 IN ALERT PATIENT Stop: 10/22/17 00:15 Sodium Chloride (Nacl 0.9% 1000 Ml Iv Soln) 1,000 mls @ 75 mls/hr IV CONTINUOUS PRN PRN Reason: THIS MED IS NOT "PRN" Stop: 10/22/17 01:55 Ceftriaxone Sodium 1,000 mg/ (Dextrose) 100 mls @ 200 mls/hr IV DAILY@1200 [facility] Stop: 09/29/17 11:59 Last Admin: 09/22/17 12:58 Dose: 1,000 mg Influenza Virus Vaccine Quadrival (Fluzone Adlt Quad [id number] Vac 0.5 Ml Syr) 0.5 ml IM .DISCHARGE PRN PRN Reason: THIS MED IS NOT "PRN" Stop: 10/22/17 17:33 Insulin Human Lispro (Humalog Insulin 100 Unit/1 Ml 3 Ml Vial) 0 - 12 unit SUBCUT ACHSP PRN; Protocol PRN Reason: PER PROTOCOL Stop: 10/22/17 00:15 Lansoprazole (Prevacid 30 Mg Odt Tablet) 30 mg PO Q6AM [facility] Stop: 10/22/17 05:59 Last Admin: 09/23/17 06:03 Dose: Not Given Olanzapine (Zyprexa 5 Mg Tablet) 5 mg PO QHS [facility] Stop: 10/22/17 21:59 Last Admin: 09/23/17 00:30 Dose: Not Given Olanzapine (Zyprexa 2.5 Mg Tablet) 2.5 mg PO DAILY [facility] Stop: 10/22/17 09:59 Last Admin: 02/11/18 10:23 Dose: 2.5 mg Sodium Chloride (Saline Flush 2.5 Ml Monoject Prefil Syrin) 2.5 ml IV Q8 [facility] Stop: 10/22/17 05:59 Last Admin: 09/23/17 06:03 Dose: Not Given - Allergies Allergies/Adverse Reactions: No Known Allergies Allergy (Verified 09/21/17 19:04) Hospital Course Hospital Course: (1) Acute metabolic encephalopathy Patient has been extremely confused for the last few days; she was found to be incontinent of stools and urine at home she lived independently until July when she came to visit her daughter She just had been a little forgetful in the past Metabolic encephalopathy likely secondary to urinary tract infection and 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 and lisinopril (3) Prerenal azotemia Patient has been hydrated with normal saline (4) Type 2 diabetes mellitus Blood sugars are well controlled on Accu-Chek before meals at bedtime and short- acting insulin coverage (5) UTI (urinary tract infection) Urine culture sugar shows gram-positive in chains Patient's been treated with ceftriaxone IV Identification and sensitivity of still pending Physical Exam Vital Signs: Temp Pulse Resp BP Pulse Ox 97.2 F 60 20 183/66 H 97 09/23/17 08:00 09/23/17 08:00 09/23/17 08:00 09/23/17 08:00 09/23/17 08:00 Intake & Output 09/22/17 09/23/17 09/24/17 00:59 00:59 00:59 Intake Total 600 1235 Balance 600 1235 Weight 71.5 kg General appearance: PRESENT: cooperative, obese Head exam: PRESENT: atraumatic, normocephalic Eye exam: PRESENT: conjunctiva pink, EOMI, PERRLA Ear exam: PRESENT: normal external ear exam, TM's normal bilaterally Mouth exam: PRESENT: moist Neck exam: PRESENT: full ROM Respiratory exam: PRESENT: clear to auscultation klaus Cardiovascular exam: PRESENT: RRR. ABSENT: diastolic murmur, systolic murmur Vascular exam: PRESENT: normal capillary refill GI/Abdominal exam: PRESENT: normal bowel sounds, soft. ABSENT: tenderness Extremities exam: PRESENT: full ROM. ABSENT: joint swelling, pedal edema Neurological exam: confused no lateralized deficits; Results Laboratory Results: 09/22/17 05:50 Impressions: Chest X-Ray 09/21/17 20:05 IMPRESSION: NO ACUTE RADIOGRAPHIC FINDING IN THE CHEST. Carotid Doppler Study 09/22/17 00:00 IMPRESSION: NO HEMODYNAMICALLY SIGNIFICANT STENOSIS. Head MRI 09/22/17 00:00 IMPRESSION: LIMITED STUDY. DIFFUSE VENTRICULOMEGALY. MINIMAL MICROVASCULAR ISCHEMIC CHANGE. NO ACUTE FINDINGS. EVIDENCE OF ACUTE STROKE: NO. Plan Discharge Plan: Patient needs neurology and neurosurgery evaluation not available in our facility We will transfer the patient to [facility] in [place] if a bed is available
[2017-09-23] MEDS: ASPIRIN 81 MG TABLET, ENT COATED PO SCH (11:01)
[2017-09-23] MEDS: OLANZAPINE 2.5 MG TABLET PO SCH (11:01)
[2017-09-23] MEDS: CEFTRIAXONE SODIUM 1,000 MG in DEXTROSE 5%-WATER 100 ML IV SCH (11:02)
[2017-09-23] MEDS ORDERED: AMLODIPINE BESYLATE 5 MG TABLET PO ONE (11:45)
[2017-09-23] MEDS ORDERED: LISINOPRIL 10 MG TABLET PO ONE (11:45)
[2017-09-23] MEDS ORDERED: LORAZEPAM INJ 2 MG/1 ML VIAL IM PRN (12:08)
[2017-09-23 13:07] VITALS: BP 139/76
[2017-09-24 07:14] LABS: VITAMIN D 25-HYDROXY 23.9 ng/mL (30.0-100.0)
[2017-09-24] MEDS ORDERED: LISINOPRIL 10 MG TABLET PO SCH (10:00)
[2017-09-24] MEDS ORDERED: AMLODIPINE BESYLATE 5 MG TABLET PO SCH (10:00)
== END 2017-09-23 13:30 | disposition short-term general hospital (02) | DRG 689 ==
LOC: ER 18:44 → EH 23:02 → 3W 09-22 14:37
PROVIDERS: ADMIT Pediatrics; ATTEND Pediatrics
DX: N30.00 Acute cystitis without hematuria (principal); G93.41 Metabolic encephalopathy; F03.91 Unspecified dementia, unspecified severity, with behavioral disturbance; I10 Essential (primary) hypertension; E11.9 Type 2 diabetes mellitus without complications; F41.9 Anxiety disorder, unspecified; Z90.710 Acquired absence of both cervix and uterus; Z79.899 Other long term (current) drug therapy; Z83.6 Family history of other diseases of the respiratory system
CPT/HCPCS: 36415; 51701; 70450; 70551; 71045; 80048; 80053; 80061; 80307; 81001; 82140; 82306; 82550; 82553; 82607; 82652; 82746; 82962; 83036; 83735; 84425; 84439; 84443; 84484; 85025; 87086; 87088; 87186; 93005; 93010; 93306; 93880; 99285; J0696; J2060; J3490; J7030